=== PATIENT | male | born 1985 | race African-American/Black ===

== ENCOUNTER 2020-04-13 12:26 | Emergency (ER) | payer OTHER, SELFPAY ==
[2020-04-13 12:29] VITALS: BP 135/74; PULSE 75; RESP 14; TEMP 36.8; O2SAT 100
--- NOTE | 2020-04-13 12:52 | DI.US.S_ITS ---
PROCEDURE: US ABDOMEN LIMITED INDICATIONS: RLQ PAIN/ INGUINAL PAIN AFTER LIFTING TECHNIQUE: Real-time focused scanning was performed of the inguinal region, with image documentation. COMPARISON: None. FINDINGS: Sonographic evaluation without and with Valsalva maneuver over the inguinal canal in the area of current reported pain reveals no underlying evidence of inguinal hernia. IMPRESSION: Normal examination, no inguinal hernia found. Dictated by: Roberto Maurice M.D. on 04/13/2020 at 14:24 Approved by: Roberto Maurice M.D. on 04/13/2020 at 14:24
--- NOTE | 2020-04-13 13:08 | ED_ITS ---
HPI - Abdominal Pain <GABRIELA Woodward - Last Filed: 04/13/20 17:04> General Chief Complaint: Abdominal Pain Stated Complaint: Thinks he Has a Hernia, lower stomach area Time Seen by Provider: 04/13/20 12:31 Source: patient Mode of arrival: Ambulatory Limitations: no limitations History of Present Illness HPI narrative: The patient is a 34-year-old male nonsmoker who denies pertinent medical history presents with a chief complaint of ?I think I have a hernia.He states that he was lifting heavy logs and trees woke up with right-sided groin pain the next day. This occurred 2 weeks ago, and his employer sent him to the emergency department today. He denies any abdominal pain, nausea vomiting or diarrhea, states that the pain is chest in his inguinal area. Denies any testicular pain swelling. Denies any dysuria urgency or frequency. Has been using open with some relief. No radiation of pain. He states the pain gets worse with motion of his hip and activity. Does state that his foot ?falls asleep quicker on his right side since this started. Related Data Previous Rx's Medication Instructions Recorded cyclobenzaprine 10 mg PO TID PRN #20 tab 04/13/20 Allergies Allergy/AdvReac Type Severity Reaction Status Date / Time No Known Drug Allergies Allergy Verified 04/13/20 12:32 Review of Systems <GABRIELA Woodward - Last Filed: 04/13/20 17:04> Review of Systems Narrative: GENERAL: Denies chills, fatigue, malaise, fever, sweats. HEENT: Denies sinus pain, ear pain, sore throat, difficulty swallowing, dizziness. RESPIRATORY: Denies dyspnea, cough, wheezing, hemoptysis, sputum. CARDIOVASCULAR: Denies chest pain, palpitations, orthopnea, edema, GASTROINTESTINAL: See HPI : Denies dysuria, frequency, incontinence, hematuria, urinary retention. MUSCULOSKELETAL: See HPI SKIN: Denies rash, skin lesions, or other NEUROLOGIC: Denies weakness, headache, numbness, change in speech, confusion, seizures, incoordination. PSYCHIATRIC: No concerning psychosocial issues. 12 point review of systems is negative except for those stated above Patient History <GABRIELA Woodward - Last Filed: 04/13/20 17:04> Social History Smoking Status: Unknown if ever smoked Smoking Status: Unknown if ever smoked alcohol intake frequency: holidays/special occasions only Substance Use Type: does not use Exam <SHAWNA Woodward - Last Filed: 04/13/20 17:04> Narrative Exam Narrative: GENERAL: This is a well-nourished, well-developed patient, in no acute distress HEAD: Atraumatic. Normocephalic. No temporal or scalp tenderness. EYES: Pupils equal round and reactive. Extraocular motions intact. No scleral icterus. No injection or drainage. ENT: Nose without bleeding, purulent drainage or septal hematoma. Throat without erythema, tonsillar hypertrophy or exudate. Uvula midline. Airway patent. NECK: Trachea midline. No JVD or lymphadenopathy. Supple, nontender, no meningeal signs. CARDIOVASCULAR: Regular rate and rhythm without murmurs, gallops, or rubs. RESPIRATORY: Clear to auscultation. Breath sounds equal bilaterally. No wheezes, rales, or rhonchi. GASTROINTESTINAL: Abdomen soft, non-tender, nondistended. No hepato- splenomegaly, or palpable masses. No guarding. Slight pain to palpation right inguinal area. No palpable hernia. EXTREMITIES: No clubbing, cyanosis, or edema. No joint tenderness, effusion, or edema noted. BACK: Nontender without deformity or crepitance. No flank tenderness. NEURO: AOx3. SKIN: No rash or erythema. Initial Vital Signs Initial Vital Signs: Vital Signs Temperature 98.3 F 04/13/20 12:29 Pulse Rate 75 04/13/20 12:29 Respiratory Rate 14 04/13/20 12:29 Blood Pressure 135/74 04/13/20 12:29 Pulse Oximetry 100 04/13/20 12:29 <Edgar Reid DO - Last Filed: 04/13/20 18:03> Initial Vital Signs Initial Vital Signs: Vital Signs Temperature 98.3 F 04/13/20 12:29 Pulse Rate 75 04/13/20 12:29 Respiratory Rate 14 04/13/20 12:29 Blood Pressure 135/74 04/13/20 12:29 Pulse Oximetry 100 04/13/20 12:29 Scores <SHAWNA Woodward - Last Filed: 04/13/20 17:04> GCS Olin coma scale eye opening: Spontaneous Odilon coma scale verbal response: Orientated Olin coma scale motor response: Obey commands Odilon coma scale total score: 15 Course <SHAWNA Woodward - Last Filed: 04/13/20 17:04> Orders Ordered: ED Orders 04/13/20 12:52 US abdomen limited Stat Discontinued Medications Ketorolac Tromethamine (Toradol) 60 mg IM NOW ONE Stop: 04/13/20 12:56 Last Admin: 04/13/20 13:10 Dose: 60 mg Documented by: SCANAPO Vital Signs Vital signs: Vital Signs - 8 hr 04/13/20 12:29 04/13/20 14:22 Temperature 98.3 F Pulse Rate 75 57 L Respiratory Rate 14 12 Blood Pressure 135/74 Blood Pressure [Left Arm] 119/71 Pulse Oximetry 100 100 <Edgar Reid DO - Last Filed: 04/13/20 18:03> Orders Ordered: ED Orders 04/13/20 12:52 US abdomen limited Stat Discontinued Medications Ketorolac Tromethamine (Toradol) 60 mg IM NOW ONE Stop: 04/13/20 12:56 Last Admin: 04/13/20 13:10 Dose: 60 mg Documented by: SCANAPO Vital Signs Vital signs: Vital Signs - 8 hr 04/13/20 12:29 04/13/20 14:22 Temperature 98.3 F Pulse Rate 75 57 L Respiratory Rate 14 12 Blood Pressure 135/74 Blood Pressure [Left Arm] 119/71 Pulse Oximetry 100 100 MDM - Abdominal Pain <SHAWNA Woodward - Last Filed: 04/13/20 17:04> Lab Data Point of care testing: Urine Dip Bedside Urine Glucose Negative Bedside Urine Bilirubin - Negative Bedside Urine Ketone - Negative Urine Specific [place] 1.015 Bedside Urine Occult Blood - Negative Bedside Urine pH 7.5 Bedside Urine Protein +/- 15 Bedside Urine Urobilinogen - Negative Bedside Urine Nitrite - Negative Bedside Urine Leukocytes - Negative Esterase Imaging Data US - abdomen: Radiologist's Impression: [address] [place] [id number] Ultrasound Report Signed Patient: Toño Anne [facility]#: [id number] : 1985Acct:[id number] Age/Sex: 34 / MDate of Service: 04/13/20 Loc: ED Accession Number: [id number] Procedure: US abdomen limited Ordering Provider: Jolly Rivera [employer] PROCEDURE: US ABDOMEN LIMITED INDICATIONS: RLQ PAIN/ INGUINAL PAIN AFTER LIFTING TECHNIQUE: Real-time focused scanning was performed of the inguinal region, with image documentation. COMPARISON: None. FINDINGS: Sonographic evaluation without and with Valsalva maneuver over the inguinal canal in the area of current reported pain reveals no underlying evidence of inguinal hernia. IMPRESSION: Normal examination, no inguinal hernia found. Dictated by: Roberto Maurice M.D. on 04/13/2020 at 14:24 Approved by: Roberto Maurice M.D. on 04/13/2020 at 14:24 [facility] Narrative Medical decision making narrative: The patient is a 34-year-old male who presents with a chief complaint of right inguinal pain. He has had no fevers, nausea vomiting diarrhea no abdominal pain on exam. He does have pain to palpation was right inguinal area, pain worsening with movement of his leg and hip. His ultrasound and exam showed no obvious hernia. He was given Toradol in the emergency department, discussed a trial of Flexeril, however the patient drove here and has to drive home. I discussed rest and ice, follow-up with primary care provider, continue [id number] measures as well as a trial Flexeril. Discussed at length coming back to the emergency department for any acute concerns such as abdominal who fever, inability keep down fluids, incontinence bowel, incontinence of bladder saddle anesthesia. Patient has no questions or concerns upon discharge and states understanding of return p recautions as well as follow-up care. <Edgar Reid DO - Last Filed: 04/13/20 18:03> Lab Data Point of care testing: Urine Dip Bedside Urine Glucose Negative Bedside Urine Bilirubin - Negative Bedside Urine Ketone - Negative Urine Specific [place] 1.015 Bedside Urine Occult Blood - Negative Bedside Urine pH 7.5 Bedside Urine Protein +/- 15 Bedside Urine Urobilinogen - Negative Bedside Urine Nitrite - Negative Bedside Urine Leukocytes - Negative Esterase Discharge Plan Departure Patient Disposition: Home Clinical Impression: Inguinal strain Qualifiers: Encounter type: initial encounter Laterality: right Qualified Code(s): S76.211A - Strain of adductor muscle, fascia and tendon of right thigh, initial encounter Discharge Date/Time: 04/13/20 15:54 Instructions: DI for Groin Strain, How To Perform RICE (Rest, Ice, Compress, Elevate) Activity Restrictions/Additional Instructions: Thank you for trusting us with your care today As discussed, your ultrasound shows no evidence of hernia Please use rest, ice, [id number] medications as well as the muscle relaxers as needed and able I sent the prescription of cyclobenzaprine, a muscle relaxer to [facility] in [place]. Do not combine this with anything sedating. Do not take and drive. As discussed please come back to the emergency department for any acute concerns. This includes abdominal pain with fever, inability keep down fluids, incontinence of bowel, incontinence of bladder or numbness in your groin Please follow-up with primary care provider. I have given the contact information at [facility] human resources vice president, they can help you identify a primary care provider Prescriptions: New cyclobenzaprine 10 mg tablet 10 mg PO TID PRN (Reason: muscle spasm) Qty: 20 RF: 0 Referrals: [facility] [Outside] Stand Alone Forms: Work Release Note <Edgar Reid, DO - Last Filed: 04/13/20 18:03> Cosign ED Attending Cosoneilature Attestation: Dr Reid Co-Sign Statement: I was available for consultation during this patient's emergency department visit. This chart is signed by myself for administrative purposes only. I did not have direct contact with this patient during this visit. They were seen independently by the APC.
[2020-04-13] MEDS: KETOROLAC 60 MG/2 ML VIAL IM (13:10)
[2020-04-13 14:22] VITALS: BP 119/71; PULSE 57; RESP 12; O2SAT 100
== END 2020-04-13 15:54 | disposition home or self-care (01) ==
PROVIDERS: Emergency Provider Nurse Practitioner Family
DX: S76.211A Strain of adductor muscle, fascia and tendon of right thigh, initial encounter (principal); X50.0XXA Overexertion from strenuous movement or load, initial encounter
CPT/HCPCS: 76705; 81003; 96372; 99283; J1885

== ENCOUNTER 2022-10-02 16:56 | Emergency (ER) | payer OTHER, MEDICAID, SELFPAY ==
[2022-10-02 17:08] VITALS: BP 117/72; PULSE 64; RESP 16; TEMP 36.8; O2SAT 98
--- NOTE | 2022-10-02 17:10 | DI.RAD.S_ITS ---
PROCEDURE: XR KNEE RT 3V INDICATIONS: pain/swelling without injury TECHNIQUE: 3 views of the knee were acquired. COMPARISON: None. FINDINGS: Bones: No fractures or dislocations. No suspicious bony lesions. Probable mild medial and lateral compartment joint space narrowing. Soft tissues: Moderate joint effusion. No suspicious soft tissue calcifications. IMPRESSION: 1. No acute fracture visualized. 2. Moderate joint effusion. 3. If symptoms persist, follow-up radiographs and/or CT or MRI may be helpful for further evaluation. Dictated by: Amarjit Springer M.D. on 10/02/2022 at 18:16 Approved by: Amarjit Springer M.D. on 10/02/2022 at 18:17
--- NOTE | 2022-10-02 17:11 | DI.RAD.S_ITS ---
PROCEDURE: XR HAND RT MIN 3V INDICATIONS: pain/swelling without injury TECHNIQUE: 3 views of the hand(s) acquired. COMPARISON: None. FINDINGS: Bones: No fractures or dislocations. Carpal bones are normally aligned. No suspicious bony lesions. Soft tissues: No suspicious soft tissue calcifications. IMPRESSION: No acute osseous abnormality. If symptoms persist, follow-up radiographs and/or CT or MRI may be helpful for further evaluation. Dictated by: Amarjit Springer M.D. on 10/02/2022 at 18:15 Approved by: Amarjit Springer M.D. on 10/02/2022 at 18:16
--- NOTE | 2022-10-02 19:23 | PC.NURSE ---
States that he woke up with his right hand swollen - no injury noted - swelling noted - redness noted - no open wounds - states that he is unaware of what started the swelling - PWD with respirations equal and unlabored bilaterally
[2022-10-02] MEDS: KETOROLAC 30 MG/ML VIAL IM (19:35)
[2022-10-02 20:00] VITALS: BP 110/76; PULSE 68; RESP 18; O2SAT 20
--- NOTE | 2022-10-02 20:29 | ED_ITS ---
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 Patient states that he works out frequently, denies any twisting motion to his right knee or any recent new injury. He states that he has popping sensation to his right hand when he wiggles his fingers on the dorsum, he denies any significant pain to this and endorses mild swelling. His right knee has suprapatellar edema, denies any pain with normal range of motion, states it is more painful after a long day of normal activity or exertional activity. States that he has sensation of instability at times, no focal tenderness, complains of generalized knee pain and some tenderness over his patellar tendon. Related Data Previous Rx's Medication Instructions Recorded cyclobenzaprine 10 mg tablet 10 mg PO TID PRN muscle spasm #20 04/13/20 tabs Allergies Allergy/AdvReac Type Severity Reaction Status Date / Time No Known Drug Allergies Allergy Verified 04/13/20 12:32 Review of Systems <LAZARO Villarreal - Last Filed: 10/02/22 20:36> Review of Systems Narrative: Review of systems is negative for acute abnormalities unless otherwise noted in HPI Patient History <LAZARO Villarreal - Last Filed: 10/02/22 20:36> Social History Smoking Status: Unknown if ever smoked Smoking Status: Unknown if ever smoked alcohol intake frequency: holidays/special occasions only Substance Use Type: does not use Exam <LAZARO Villarreal - Last Filed: 10/02/22 20:36> Narrative Exam Narrative: Reviewed vitals signs and nursing notes. General: cooperative, comfortable, in no acute distress, well groomed HEENT: symmetrical facial expressions, moist mucous membranes MSK: moves all extremities, neurovascularly intact, no weakness, normal tone, right knee with suprapatellar effusion, fluid wave, mild tenderness over patellar tendon, no tenderness over MCL, LCL, left Laure's is negative, patient is ambulatory without weakness, no surrounding erythema or ecchymosis. Patient states it has been often on like this for over 1 year. Right hand with mild edema to the dorsum, normal range of motion, without weakness, brisk cap refill, no open wounds. Skin: brisk capillary refill, without pallor or erythema Neuro: normal speech and cognition, A&O x3, ambulatory, clear speech Psych: mental status is grossly normal, congruent mood, normal affect, pleasant and cooperative Initial Vital Signs Initial Vital Signs: Vital Signs Temperature 98.3 F 10/02/22 17:08 Pulse Rate 64 10/02/22 17:08 Respiratory Rate 16 10/02/22 17:08 Blood Pressure 117/72 10/02/22 17:08 Pulse Oximetry 98 10/02/22 17:08 Oxygen Delivery Method 10/02/22 17:08 <Ayaka Richey DO - Last Filed: 10/03/22 02:53> Initial Vital Signs Initial Vital Signs: Vital Signs Temperature 98.3 F 10/02/22 17:08 Pulse Rate 64 10/02/22 17:08 Respiratory Rate 16 10/02/22 17:08 Blood Pressure 117/72 10/02/22 17:08 Pulse Oximetry 98 10/02/22 17:08 Oxygen Delivery Method 10/02/22 17:08 Course <LAZRAO Villarreal - Last Filed: 10/02/22 20:36> Orders Ordered: Discontinued Medications Ketorolac Tromethamine (Ketorolac 30 Mg/Ml Vial) 30 mg IM NOW ONE Stop: 10/02/22 19:28 Last Admin: 10/02/22 19:35 Dose: 30 mg Documented By: AP Vital Signs Vital signs: Vital Signs - 8 hr 10/02/22 20:00 Pulse Rate 68 Respiratory Rate 18 Blood Pressure 110/76 Pulse Oximetry 20 L Oxygen Delivery Method Room Air <Ayaka Richey DO - Last Filed: 10/03/22 02:53> Orders Ordered: Discontinued Medications Ketorolac Tromethamine (Ketorolac 30 Mg/Ml Vial) 30 mg IM NOW ONE Stop: 10/02/22 19:28 Last Admin: 10/02/22 19:35 Dose: 30 mg Documented By: AP Vital Signs Vital signs: Vital Signs - 8 hr 10/02/22 20:00 Pulse Rate 68 Respiratory Rate 18 Blood Pressure 110/76 Pulse Oximetry 20 L Oxygen Delivery Method Room Air MDM - Extremity Injury (Lower) <Marixa Lo [facility] - Last Filed: 10/02/22 20:36> Imaging Data Extremity x-ray #1: Radiologist's Impression: PROCEDURE:? XR HAND RT MIN 3V ? INDICATIONS:? pain/swelling without injury ? TECHNIQUE:? 3 views of the hand(s) acquired.? ? COMPARISON:? None. ? FINDINGS:? ? Bones:? No fractures or dislocations.? Carpal bones are normally aligned.? No suspicious bony lesions.? ? Soft tissues:? No suspicious soft tissue calcifications.? ? ? IMPRESSION:? No acute osseous abnormality.? If symptoms persist, follow-up radiographs and/or CT or MRI may be helpful for further evaluation. ? ? Dictated by: Amarjit Springer M.D. on 10/02/2022 at 18:15 ? ? Approved by: Amarjit Springer M.D. on 10/02/2022 at 18:16 ? Extremity x-ray #2: Radiologist's Impression: PROCEDURE:? XR KNEE RT 3V ? INDICATIONS:? pain/swelling without injury ? TECHNIQUE:? 3 views of the knee were acquired.? ? COMPARISON:? None. ? FINDINGS:? ? Bones:? No fractures or dislocations.? No suspicious bony lesions.? Probable mild medial and lateral compartment joint space narrowing. ? Soft tissues:? Moderate joint effusion.? No suspicious soft tissue calcifications.? ? ? IMPRESSION:? 1. No acute fracture visualized. 2. Moderate joint effusion. 3. If symptoms persist, follow-up radiographs and/or CT or MRI may be helpful for further evaluation.? ? ? Dictated by: Amarjit Springer M.D. on 10/02/2022 at 18:16 ? ? Approved by: Amarjit Springer M.D. on 10/02/2022 at 18:17 ? [facility] Narrative Medical decision making narrative: This is a pleasant 37-year-old male who presents to the emergency department with pain and swelling to his right knee without recent injury and pain and swelling to his right hand without reported recent injury. On history and exam patient states that he had a right knee meniscal injury 1 year ago, has had ongoing swelling to the joint ever since, states it is especially bad after activities. He denies any weakness, numbness or tingling but states it feels unstable when it is very swollen. He had mild tenderness to the patellar tendon without tenderness to the MCL, LCL and had normal range of motion, ambulatory with a negative Laure's test. Patient works as a boxer, has some mild swelling to the dorsum of his right hand, when he flexes his fingers he has a popping sensation, it appears that the tendons are giving him this sensation but they are intact. Encouraged him to use topical diclofenac gel, anti- inflammatories and Tylenol as needed for his pain and symptoms. For his right knee, he wears a knee immobilizer most of the time, encouraged him to follow-up at [facility] for another evaluation of this. He may benefit from a steroid injection or possible meniscal procedure if he is having this significant of joint effusion without exertional activity. His right knee x-ray shows no acute fracture, a moderate joint effusion with probable medial and lateral compartment joint space narrowing. I encouraged him to keep his knee extended as much as possible and immobilize, use ice for comfort, NSAIDs and Tylenol for pain. His right hand x-ray was negative for osseous abnormality as well and no suspicious bony lesions. Patient is appropriate and amenable to discharge home. Vital signs are stable on repeat examination is unremarkable. Patient has been informed of results. Patient has been given strict return to ER precautions for any new or worsening symptoms. Patient understands to follow up closely with outpatient providers as instructed. Patient understands plan and agrees to discharge home. All questions and concerns answered at this time. Discharge Plan Departure Patient Disposition: Home Clinical Impression: Effusion of knee Qualifiers: Laterality: right Qualified Code(s): M25.461 - Effusion, right knee Acute meniscal injury of knee Qualifiers: Encounter type: initial encounter Laterality: right Qualified Code(s): S83.8X1A - Sprain of other specified parts of right knee, initial encounter Instructions: Meniscal Tear, DI for Knee Effusion Activity Restrictions/Additional Instructions: *You have been diagnosed with a right knee effusion, this is most likely related to a meniscal injury. Please schedule appointment at [facility] for follow-up. Let them know that it has been swelling like this off and on for a year, please take ibuprofen 800 mg every 8 hours as needed, use topical diclofenac gel, CBD cream, or something topical as needed. Please wear your knee immobilizer as often as possible while your out of bed. Please take Tylenol in addition to ibuprofen as needed and return to the emergency departmen t for weakness, worsening pain, or other concerns. You may benefit from steroid injections, definitely have an evaluation by an orthopedic doctor so that they can tell you whether or not you would benefit from surgery. *What to do: *Please continue to take your regular medications as directed. [ ] New medication prescriptions sent to your pharmacy: [ ] [ ] New medication written as a paper prescription [x ] No new medications given *Please follow up with your primary care provider in 2-3 days, call for an appointment. Let them know you were seen in the Emergency Department and that we asked that you be seen for follow-up. We will electronically transmit a record of today's note if your PCP is in our system *If you do not have a primary care provider please contact [phone] to establish care with one of the [facility] primary care providers. *Return to Emergency Department if you should have any new, worsening, or concerning symptoms, such as [fever greater than 101F, chills, worsening pain, persistent vomiting or other bothersome symptoms]. Prescriptions: No Action cyclobenzaprine 10 mg tablet 10 mg PO TID PRN (Reason: muscle spasm) Qty: 20 0RF Referrals: [facility] [Provider Group] Visit Report Forms: Patient Portal/API <Ayaka Richey DO - Last Filed: 10/03/22 02:53> Cosign ED Attending Reedature Attestation: I was immediately available in the department for consultation. Documentation has been reviewed. I agree with assessment and plan.
== END 2022-10-02 20:00 | disposition home or self-care (01) ==
PROVIDERS: Emergency Provider Nurse Practitioner Critical Care Medicine
DX: M25.461 Effusion, right knee (principal); S83.8X1A Sprain of other specified parts of right knee, initial encounter
CPT/HCPCS: 73130; 73562; 96372; 99283; J1885

== ENCOUNTER 2023-12-13 06:40 | Emergency (ER) | payer SELFPAY ==
[2023-12-13] VITALS (10 sets, daily range): BP systolic 118–135; BP diastolic 65–83; PULSE 61–83; RESP 14; TEMP 37.1; O2SAT 98–100; BMI 27.8
--- NOTE | 2023-12-13 07:10 | ED.BACK ---
HPI - Back Pain/Injury General Chief Complaint: Back Pain/Injury Stated Complaint: sinus infection? tunnel vision. had the flu Time Seen by Provider: 12/13/23 06:51 Source: patient History of Present Illness HPI Narrative: 38-year-old male with no reported past medical history presents with several days of bilateral flank pain. Patient states that he recently recovered from the flu and since then he has had his symptoms. He states that he has not yet established with primary care physician and is concerned that he may have developed problems with his kidneys. Denies nausea, vomiting, hematuria, dysuria, other complaints. Related Data Previous Rx's Medication Instructions Recorded cyclobenzaprine 10 mg tablet 10 mg PO TID PRN muscle spasm #20 04/13/20 tabs methocarbamol 500 mg tablet 500 mg PO TID #30 tabs 12/13/23 Allergies Allergy/AdvReac Type Severity Reaction Status Date / Time No Known Drug Allergies Allergy Verified 04/13/20 12:32 Review of Systems Review of Systems Narrative: Negative except as noted above Patient History Social History Smoking Status: Never smoker Smoking Status: Never smoker alcohol intake frequency: a few times a month Substance Use Type: does not use Exam Initial Vital Signs Initial Vital Signs: Vital Signs Temperature 98.8 F 12/13/23 06:51 Pulse Rate 83 12/13/23 06:51 Respiratory Rate 14 12/13/23 06:51 Blood Pressure 135/73 12/13/23 06:51 Pulse Oximetry 98 12/13/23 06:51 Oxygen Delivery Method Room Air 12/13/23 06:51 Const: Awake, alert, no acute distress, nontoxic appearing Cardiac: regular rate, regular rhythm RESP: unlabored, clear bilaterally, no wheezing GI: Atraumatic, soft, nontender MSK: No midline tenderness, no reproducible CVA tenderness bilaterally Skin: Warm, Dry, intact, no rashes Neuro: AO x3, CN II-XII grossly intact, moves all extremities Psych: affect normal, mood normal, not suicidal, not homicidal Course Orders Ordered: ED Orders 12/13/23 07:17 US renal complete Stat 12/13/23 07:35 CBC Auto Diff [Complete Blood Count AUTO DIFF] Stat CMP [Comprehensive Metabolic Panel] Stat Discontinued Medications Sodium Chloride (Normal Saline 0.9%) 1,000 mls @ 1,000 mls/hr IV BOLUS ONE Stop: 12/13/23 08:16 Last Infusion: 12/13/23 08:56 Dose: Infused Documented By: Admin: 12/13/23 07:39 Dose: 1,000 mls/hr Documented By: RB Ketorolac Tromethamine (Ketorolac 30 Mg/Ml Vial) 15 mg IV NOW ONE Stop: 12/13/23 08:19 Last Admin: 12/13/23 08:35 Dose: 15 mg Documented By: RB Vital Signs Vital signs: Vital Signs - 8 hr 12/13/23 08:30 12/13/23 08:30 12/13/23 09:00 Pulse Rate 62 64 Blood Pressure 118/82 Pulse Oximetry 99 99 12/13/23 09:00 12/13/23 09:34 12/13/23 09:39 Pulse Rate 66 Blood Pressure 118/78 123/70 Pulse Oximetry 99 12/13/23 09:39 12/13/23 10:00 12/13/23 10:00 Pulse Rate 66 63 Blood Pressure 126/79 Pulse Oximetry 100 98 12/13/23 10:30 12/13/23 10:30 Pulse Rate 64 Blood Pressure 122/77 Pulse Oximetry 99 MDM - Back Pain/Injury Differential Diagnosis Differential diagnosis: Likely lumbar radiculopathy, strain of lumbar region and pyelonephritis Lab Data 12/13/23 07:35 12/13/23 07:35 Labs: Lab Results 12/13/23 Range/Units 07:35 WBC 2.8 L (4.5-11.0) X10^3/uL RBC 4.95 (4.5-5.9) X10^6/uL Hgb 15.2 (13.5-17.5) g/dL Hct 44.3 (41-53) % MCV 89.4 (80-100) fL MCH 30.8 (26-34) PG MCHC 34.4 (30-36) % RDW 12.5 (11.6-14.8) % Plt Count 189 (150-400) X10^3/uL Neut % (Auto) 23.0 L (50-75) % Lymph % (Auto) 43.4 H (25-40) % Caroline % (Auto) 23.8 H (3-14) % Eos % (Auto) 9.1 H (2-4) % Baso % (Auto) 0.7 (0-2) % Neut # (Auto) 700 L (1476-2705) /uL Lymph # (Auto) 1200 (2228-4522) /uL Caroline # (Auto) 700 (0-900) /uL Eos # (Auto) 300 (0-450) /uL Baso # (Auto) 0 (0-100) /uL Sodium 136 L (137-145) mmol/L Potassium 4.2 (3.4-5.1) mmol/L Chloride 102 (98-107) mmol/L Carbon Dioxide 28 (22-32) mmol/L BUN 8 L (9-20) mg/dL Creatinine 1.17 (0.66-1.25) mg/dL Estimated GFR > 60 (>60) mL/min BUN/Creatinine Ratio 6.8 (6-22) Glucose 90 (70-100) mg/dL Calcium 9.4 (8.4-10.2) mg/dL Total Bilirubin 0.6 (0.2-1.3) mg/dL AST 36 (17-59) IU/L ALT 42 (<50) IU/L Alkaline Phosphatase 52 (38-126) U/L Total Protein 7.4 (6.3-8.2) g/dL Albumin 4.1 (3.5-5.0) g/dL Globulin 3.3 (1.7-4.1) g/dL Albumin/Globulin Ratio 1.2 (1.0-2.8) Urine Dip Bedside Urine Glucose Negative Bedside Urine Bilirubin - Negative Bedside Urine Ketone - Negative Urine Specific [place] 1.015 Bedside Urine Occult Blood - Negative Bedside Urine pH 6 Bedside Urine Protein - Negative Bedside Urine Urobilinogen - Negative Bedside Urine Nitrite - Negative Bedside Urine Leukocytes - Negative Esterase MDM Narrative Medical decision making narrative: Well-appearing patient with bilateral flank pain after having the flu. Patient is resting comfortably on ED stretcher, no acute distress, no significant reproducible tenderness to palpation. Laboratory work is reviewed, unremarkable. Ultrasound of the kidneys shows no acute findings. Uncertain etiology of patient's symptoms. Short course of muscle relaxers sent to pharmacy of choice. Counseled to drink plenty of fluids, take Tylenol and Motrin as needed for pain, a handout of local PCPs given to patient. Discharge Plan Departure Patient Disposition: Home Clinical Impression: Bilateral flank pain Instructions: DI for Low Back Pain Prescriptions: New methocarbamol 500 mg tablet 500 mg PO TID Qty: 30 0RF No Action cyclobenzaprine 10 mg tablet 10 mg PO TID PRN (Reason: muscle spasm) Qty: 20 0RF Stand Alone Forms: Patient Portal/API
--- NOTE | 2023-12-13 07:17 | DI.US.S_ITS ---
PROCEDURE: US RENAL COMPLETE INDICATIONS: bilat flank pain TECHNIQUE: Real-time scanning was performed of the kidneys and bladder, with image documentation. COMPARISON: None. FINDINGS: Kidneys: Kidneys are normal in size. Right kidney measures 11.0 cm long; left kidney measures 9.9 cm long. Right renal cortical thickness is 1.3 cm; left renal cortical thickness is 1.1 cm. Renal cortical echotexture is normal. No hydronephrosis or nephrolithiasis. No suspicious solid mass lesions. Bladder: Pre-void bladder volume is 192 mL. Post-void residual is 2 mL. Pre-void images demonstrate no intraluminal masses or stones. On pre-void images, bilateral ureteral jets are noted with color Doppler interrogation. (Of note, ureteral jets may not be detectable in up to 25% of cases due to insufficient differences in specific gravity between ureteral and bladder urine). Miscellaneous: No free pelvic fluid. Prostate measures 3.4 x 3.8 x 2.9 cm. IMPRESSION: No hydronephrosis or nephrolithiasis. Approved by: Amarjit Shipman M.D. on 12/13/2023 at 10:19
[2023-12-13] MEDS: SODIUM CHLORIDE 0.9% 1,000 ML 1000 ML IV (07:39)
[2023-12-13 07:46] LABS: Add Manual Diff / Slide Review NO; Basophils Absolute Auto 0 /uL (0-100); Basophils Percent Auto 0.7 % (0-2); Eosinophils Absolute Auto 300 /uL (0-450); Eosinophils Percent Auto 9.1 % (2-4); Hematocrit 44.3 % (41-53); Hemoglobin 15.2 g/dL (13.5-17.5); Lymphocytes Absolute Auto 1200 /uL (1100-4500); Lymphocytes Percent Auto 43.4 % (25-40); Mean Corpuscular HGB Conc 34.4 % (30-36); Mean Corpuscular Hemoglobin 30.8 PG (26-34); Mean Corpuscular Volume 89.4 fL (80-100); Monocytes Absolute Auto 700 /uL (0-900); Monocytes Percent Auto 23.8 % (3-14); Neutrophils Absolute Auto 700 /uL (1500-7000); Platelet Count 189 X10^3/uL (150-400); Red Blood Cell Count 4.95 X10^6/uL (4.5-5.9); Red Cell Distribution Width 12.5 % (11.6-14.8); White Blood Cell Count 2.8 X10^3/uL (4.5-11.0)
[2023-12-13 08:11] LABS: Alanine Aminotransferase 42 IU/L (<50); Albumin 4.1 g/dL (3.5-5.0); Albumin Globulin Ratio 1.2 (1.0-2.8); Alkaline Phosphatase 52 U/L (38-126); Aspartate Aminotransferase 36 IU/L (17-59); BUN Creatinine Ratio 6.8 (6-22); Bilirubin Total 0.6 mg/dL (0.2-1.3); Blood Urea Nitrogen 8 mg/dL (9-20); Calcium 9.4 mg/dL (8.4-10.2); Carbon Dioxide 28 mmol/L (22-32); Chloride 102 mmol/L (98-107); Estimated Glomerular Filt Rate > 60 mL/min (>60); Globulin 3.3 g/dL (1.7-4.1); Glucose 90 mg/dL (70-100); HEMOLYSIS 16 (0-50); Potassium 4.2 mmol/L (3.4-5.1); Sodium 136 mmol/L (137-145); Total Protein 7.4 g/dL (6.3-8.2)
[2023-12-13] MEDS: KETOROLAC 30 MG/ML VIAL 15 MG IV (08:35)
== END 2023-12-13 10:53 | disposition home or self-care (01) ==
PROVIDERS: Emergency Provider Emergency Medicine
DX: R10.9 Unspecified abdominal pain (principal)
CPT/HCPCS: 36415; 76770; 80053; 81003; 85025; 96361; 96374; 99284; J1885